=== PATIENT | female | born 1935 | race Caucasian/White ===

== ENCOUNTER → 2016-10-30 | Outpatient (CLI) | payer MEDICARE | END | disposition home or self-care (01) | LOC: CFH 07:00 | PROVIDERS: ATTEND Internal Medicine Hematology & Oncology | DX: Z12.31 Encounter for screening mammogram for malignant neoplasm of breast (principal); N64.89 Other specified disorders of breast | CPT/HCPCS: 77063; G0202 ==

== ENCOUNTER → 2016-11-06 | Outpatient (CLI) | payer MEDICARE | END | disposition home or self-care (01) | LOC: CFH 11:38 | PROVIDERS: ATTEND Internal Medicine Hematology & Oncology | DX: N63 Unspecified lump in breast (principal); D05.11 Intraductal carcinoma in situ of right breast | CPT/HCPCS: 76641; G0206 ==

== ENCOUNTER → 2016-11-20 | Outpatient (CLI) | payer MEDICARE ==
[~2016-11-20] MED LIST: LIDOCAINE 1%, 20ML ONE; LIDOCAINE 1%-EPI 1:100K, 20ML ONE; SODIUM BICARBONATE 4.2%, 5ML ONE
== END | disposition home or self-care (01) ==
LOC: CFH 07:07
PROVIDERS: ATTEND Internal Medicine Hematology & Oncology
DX: N63 Unspecified lump in breast (principal); N64.89 Other specified disorders of breast; D05.11 Intraductal carcinoma in situ of right breast
CPT/HCPCS: 19083; 88305; G0206; J3490

== ENCOUNTER → 2016-12-20 | Outpatient (CLI) | payer MEDICARE ==
[~2016-12-20] MED LIST changes: +ATEN25TA PO; -LIDOCAINE 1%-EPI 1:100K, 20ML ONE
== END | disposition home or self-care (01) ==
LOC: RAD 11:10
PROVIDERS: ATTEND Surgery
DX: C50.411 Malignant neoplasm of upper-outer quadrant of right female breast (principal)
CPT/HCPCS: 38792; A9541; J3490

== ENCOUNTER 2016-12-21 06:40 | Day surgery (SDC) | payer MEDICARE ==
[2016-12-15 13:27] VITALS: BP 151/94
[~2016-12-21] VITALS: Ht 162.6 cm; Wt 63.0 kg
[~2016-12-21 06:40] MED LIST changes: -LIDOCAINE 1%, 20ML ONE; -SODIUM BICARBONATE 4.2%, 5ML ONE
[2016-12-21] MEDS ORDERED: BUPIVACAINE/PF-EPI 0.25% 1:200K ONE (07:13)
[2016-12-21] MEDS ORDERED: HEPARIN 1,000 UNITS/ML, 10ML ONE (07:13)
[2016-12-21] MEDS ORDERED: LIDOCAINE/PF 1%-EPI 1:200K, 30ML ONE (07:13)
[2016-12-21] MEDS ORDERED: SODIUM BICARBONATE 4.2%, 5ML ONE ×2 (07:13→07:16)
[2016-12-21] MEDS ORDERED: LIDOCAINE/PF 1%, 30ML ONE (07:14)
[2016-12-21] MEDS ORDERED: ISOSULFAN BLUE 10 MG/ML, 5ML IV ONE (07:15)
[2016-12-21] MEDS ORDERED: BUPIVACAINE/PF-EPI 0.5% 1:200K ONE (07:17)
[2016-12-21] MEDS ORDERED: LACTATED RINGERS 1,000 ML IV SCH (07:23)
[2016-12-21 07:25] VITALS: BP 151/94
[2016-12-21] MEDS ORDERED: BUPIVACAINE/PF 0.25% ONE (08:37)
[2016-12-21] MEDS ORDERED: CLINDAMYCIN 150 MG/ML, 6ML ONE (08:42)
[2016-12-21] MEDS ORDERED: FENTANYL PF 250 MCG/5ML ONE (08:43)
[2016-12-21] MEDS ORDERED: PROPOFOL 10 MG/ML, 20ML ONE (09:00)
[2016-12-21] MEDS ORDERED: SUCCINYLCHOLINE 20 MG/ML, 10ML ONE (09:00)
[2016-12-21] MEDS ORDERED: EPHEDRINE 50 MG/ML, 1ML ONE (09:00)
[2016-12-21] MEDS ORDERED: ONDANSETRON 2MG/ML, 2ML ONE (09:00)
[2016-12-21] MEDS ORDERED: DEXAMETHASONE 4 MG/ML, 1ML ONE (09:00)
[2016-12-21] MEDS ORDERED: ACETAMINOPHEN 650 MG/20.3 ML UDC ONE (11:29)
[2016-12-21] MEDS ORDERED: OXYcodone 5 MG/5 ML ORAL.SOL UDC ONE (11:29)
[2016-12-21] MEDS ORDERED: KETOROLAC 30 MG/1 ML IV PRN (11:30)
[2016-12-21] MEDS ORDERED: hydrALAzine 20 MG/ML, 1ML IV PRN (11:30)
[2016-12-21] MEDS ORDERED: HYDROmorphone 1 MG/ML, 1ML IV PRN (11:30)
[2016-12-21] MEDS ORDERED: ONDANSETRON 2MG/ML, 2ML IVPush PRN (11:30)
[2016-12-21] MEDS ORDERED: ACETAMINOPHEN 325 MG TABLET PO PRN (11:30)
[2016-12-21] MEDS ORDERED: OXYcodone 5 MG/5 ML ORAL.SOL UDC PO PRN (11:30)
[2016-12-21] MEDS ORDERED: EPHEDRINE 50 MG/ML, 1ML IVPush PRN (11:30)
[2016-12-21] MEDS ORDERED: HYDROcodone/APAP 7.5-325MG/15ML UDC PO PRN (11:30)
[2016-12-21] MEDS ORDERED: FENTANYL PF 100 MCG/2ML IV PRN (11:30)
[2016-12-21] MEDS ORDERED: LABETALOL 5MG/ML, 20ML IV PRN (11:30)
[2016-12-21] MEDS ORDERED: PROMETHAZINE 25 MG/ML, 1ML IV PRN (11:30)
== END 2016-12-21 14:10 | disposition home or self-care (01) ==
LOC: OUT 06:40
PROVIDERS: ATTEND Surgery
DX: C50.411 Malignant neoplasm of upper-outer quadrant of right female breast (principal); N60.21 Fibroadenosis of right breast; I10 Essential (primary) hypertension; Z88.0 Allergy status to penicillin; Z88.6 Allergy status to analgesic agent; F41.9 Anxiety disorder, unspecified; Z72.89 Other problems related to lifestyle; G25.81 Restless legs syndrome; Z90.710 Acquired absence of both cervix and uterus; Z98.890 Other specified postprocedural states
CPT/HCPCS: 19303; 36561; 71010; 77001; 88307; 93005; C1729; C1788; J0330; J1100; J1644; J2405; J2704; J3010; J3490; J7120; 88341; 88342; G0461

== ENCOUNTER → 2017-01-08 | Outpatient (CLI) | payer MEDICARE | END | disposition home or self-care (01) | LOC: CVU 07:59 | PROVIDERS: ATTEND Internal Medicine Hematology & Oncology | DX: Z51.11 Encounter for antineoplastic chemotherapy (principal); D05.11 Intraductal carcinoma in situ of right breast; I08.3 Combined rheumatic disorders of mitral, aortic and tricuspid valves; I37.1 Nonrheumatic pulmonary valve insufficiency | CPT/HCPCS: 93306 ==

== ENCOUNTER → 2017-04-26 | Outpatient (CLI) | payer MEDICARE | END | disposition home or self-care (01) | LOC: CFH 11:12 | PROVIDERS: ATTEND Internal Medicine Hematology & Oncology | DX: Z13.820 Encounter for screening for osteoporosis (principal); M85.88 Other specified disorders of bone density and structure, other site; C50.211 Malignant neoplasm of upper-inner quadrant of right female breast | CPT/HCPCS: 77080 ==

== ENCOUNTER → 2017-08-16 | Outpatient (CLI) | payer MEDICARE | END | disposition home or self-care (01) | LOC: CVU 14:23 | PROVIDERS: ATTEND Internal Medicine Hematology & Oncology | DX: I34.0 Nonrheumatic mitral (valve) insufficiency (principal); Z85.3 Personal history of malignant neoplasm of breast; Z92.21 Personal history of antineoplastic chemotherapy | CPT/HCPCS: 93306 ==

== ENCOUNTER → 2017-11-12 | Outpatient (CLI) | payer MEDICARE | END | disposition home or self-care (01) | LOC: CVU 07:32 | PROVIDERS: ATTEND Internal Medicine Hematology & Oncology | DX: I08.1 Rheumatic disorders of both mitral and tricuspid valves (principal); C50.211 Malignant neoplasm of upper-inner quadrant of right female breast; Z13.820 Encounter for screening for osteoporosis; Z51.11 Encounter for antineoplastic chemotherapy; Z51.12 Encounter for antineoplastic immunotherapy; E55.9 Vitamin D deficiency, unspecified | CPT/HCPCS: 93306 ==

== ENCOUNTER → 2017-12-11 | Outpatient (CLI) | payer MEDICARE | END | disposition home or self-care (01) | LOC: CFH 11:10 | PROVIDERS: ATTEND Internal Medicine Hematology & Oncology | DX: Z12.31 Encounter for screening mammogram for malignant neoplasm of breast (principal); Z85.3 Personal history of malignant neoplasm of breast; Z90.11 Acquired absence of right breast and nipple | CPT/HCPCS: 77067 ==

== ENCOUNTER → 2018-12-12 | Outpatient (CLI) | payer MEDICARE | END | disposition home or self-care (01) | LOC: CFH 11:27 | PROVIDERS: ATTEND Internal Medicine Hematology & Oncology | DX: Z12.31 Encounter for screening mammogram for malignant neoplasm of breast (principal) | CPT/HCPCS: 77067 ==

== ENCOUNTER 2019-05-12 12:46 | Outpatient (CLI) | payer MEDICARE | END 2019-05-12 23:59 | disposition home or self-care (01) | LOC: CFH 12:46 | PROVIDERS: ATTEND Internal Medicine Hematology & Oncology | DX: M85.88 Other specified disorders of bone density and structure, other site (principal); M81.0 Age-related osteoporosis without current pathological fracture; C50.211 Malignant neoplasm of upper-inner quadrant of right female breast; E55.9 Vitamin D deficiency, unspecified; Z88.6 Allergy status to analgesic agent; Z88.0 Allergy status to penicillin; Z82.49 Family history of ischemic heart disease and other diseases of the circulatory system | CPT/HCPCS: 77080 ==

== ENCOUNTER 2019-12-15 10:47 | Outpatient (CLI) | payer MEDICARE | END 2019-12-15 23:59 | disposition home or self-care (01) | LOC: CFH 10:47 | PROVIDERS: ATTEND Internal Medicine Hematology & Oncology | DX: Z12.31 Encounter for screening mammogram for malignant neoplasm of breast (principal); Z90.11 Acquired absence of right breast and nipple | CPT/HCPCS: 77067 ==

== ENCOUNTER → 2020-12-20 | Outpatient (CLI) | payer MEDICARE | END | disposition home or self-care (01) | LOC: CFH 11:36 | PROVIDERS: ATTEND Internal Medicine Hematology & Oncology | DX: Z12.31 Encounter for screening mammogram for malignant neoplasm of breast (principal) | CPT/HCPCS: 77063; 77067 ==